=== PATIENT | male | born 1995 | race Asian ===

== ENCOUNTER 2017-01-01 15:14 | Emergency (ER) | payer OTHER, SELFPAY ==
[2017-01-01] MEDS ORDERED: Metoclopramide HCl 10 MG/2 ML VIAL ONE (17:22)
[2017-01-01] MEDS ORDERED: Ondansetron HCl/PF 4 MG/2 ML Vial ONE (17:22)
[2017-01-01] MEDS ORDERED: Ketorolac Tromethamine 30 MG/ML VIAL ONE (17:22)
[2017-01-01 17:35] LABS: #Basophils 0.1 thou/uL (0.0-0.2); #Eosinphils 0.4 thou/uL (0.0-0.7); #Lymphocytes 2.7 thou/uL (1.20-3.40); #Monocytes 0.7 thou/uL (0.11-0.59); %Basophils 1.3 % (0.0-1.0); %Eosinophils 5.4 % (0.0-10.0); %Lymphocytes 34.5 % (21.0-51.0); %Monocytes 8.4 % (0.0-10.0); %Neutrophils 50.4 % (42.0-75.0); Mean Corpuscular HGB CONC 31.7 g/dL (32.0-36.0); Mean Corpuscular Hemoglobin 25.4 pg (27.0-31.0); Mean Corpuscular Volume 80.1 fl (80.0-94.0); Mean Platelet Volume 8.4 fL (7.4-10.4); Platelet Count 231 thou/uL (130-400); RBC Distribution Width 12.5 % (11.5-14.5); Red Blood Cell (RBC) Count 5.12 mill/uL (4.70-6.10); White Blood Cell (WBC) Count 7.9 thou/uL (4.8-10.8)
[2017-01-01 17:43] LABS: Bacteria/HPF Rare-Few HPF (None Seen); Bilirubin Negative (Negative); Blood, Urine Negative (Negative); Clarity Clear (Clear); Glucose, Urine (Dipstick) Negative (Negative); Leukocyte Negative (Negative); Nitrite Negative (Negative); Protein, Urine (Dipstick) Negative (Neg-Trace); RBC/HPF 0-3 HPF (0-3); Specific Gravity, Urine 1.025 (1.005-1.030); Squamous Epithelial 0-3 HPF (0-3); WBC/HPF 0-3 HPF (0-3)
[2017-01-01] MEDS ORDERED: Diphenoxylate HCl/Atropine Tablet ONE (17:43)
[2017-01-01 17:52] LABS: ALT (SGPT) 10 U/L (8-55); AST (SGOT) 23 U/L (5-34); Albumin 4.1 g/dL (3.5-5.0); Alkaline Phosphatase 67 U/L (40-150); Anion Gap 18 mmol/L (10-20); BUN (Urea Nitrogen) 11 mg/dL (8.9-20.6); Bilirubin, Total Less than 0.3 mg/dL (0.2-1.2); Calc. Creatinine Clearance 0 mL/min (70-130); Calcium 8.8 mg/dL (7.8-10.44); Carbon Dioxide 20 mmol/L (22-29); Chloride 107 mmol/L (98-107); Estimated GFR-MDRD 89; Globulin 3.2 g/dL (2.4-3.5); Glucose 77 mg/dL (70-105); Lipase 76 U/L (8-78); Potassium 3.9 mmol/L (3.5-5.1); Protein, Total 7.3 g/dL (6.0-8.3); Sodium 141 mmol/L (136-145)
== END 2017-01-01 20:10 | disposition home or self-care (01) ==
LOC: MADERS 15:14
DX: K52.9 Noninfective gastroenteritis and colitis, unspecified (principal); F17.290 Nicotine dependence, other tobacco product, uncomplicated
CPT/HCPCS: 80053; 81001; 82150; 83690; 85025; 87086; 96374; 96375; J1885; J2405; J2765